=== PATIENT | male | born 1965 | race Caucasian/White ===

== ENCOUNTER 2023-04-07 14:01 | Emergency (ER) | payer BC ==
[~2023-04-07] VITALS: Ht 175.3 cm; Wt 108.9 kg
[2023-04-07] MEDS ORDERED: CRESTOR10 MG PO (14:09)
== END 2023-04-07 16:49 | disposition home or self-care (01) ==
LOC: ER 14:02
DX: H01.001 Unspecified blepharitis right upper eyelid (principal); Z88.0 Allergy status to penicillin; I10 Essential (primary) hypertension